=== PATIENT | male | born 1970 | race Caucasian/White ===

== ENCOUNTER 2019-06-01 21:56 | Emergency (ER) | payer BC ==
[~2019-06-01] VITALS: Ht 175.3 cm; Wt 106.6 kg
[2019-06-01 22:37] VITALS: BP_SYST 161
--- NOTE | 2019-06-01 23:03 | NUR ---
Patient triaged and placed in waiting room. VSS and patient appears in no acute distress at this time. Accompanied by self, awaiting available bed, and MD notified of need for MSE.
--- NOTE | 2019-06-02 00:15 | NUR ---
Patient to ER bed 08 to gown for evaluation. Side rails up. Report given to JAMISON Garcia
[2019-06-02 01:29] LABS: BASOPHILS % (AUTO) 1.1 % (0.0-2.0); EOSINOPHILS # (AUTO) 0.3 K/uL (0.0-0.4); EOSINOPHILS % (AUTO) 8.4 % (0.0-4.0); HEMATOCRIT 42.1 % (36-54); HEMOGLOBIN 13.9 g/dL (14.0-18.0); LYMPHOCYTES # (AUTO) 2.2 K/uL (1.0-5.5); LYMPHOCYTES % (AUTO) 55.1 % (20.5-51.5); MEAN CORPUSCULAR HEMOGLOBIN 29 pg (27-31); MEAN CORPUSCULAR HGB CONC 33 % (32-36); MEAN CORPUSCULAR VOLUME 89 fL (79.0-98.0); MONOCYTES # (AUTO) 0.4 K/uL (0.0-1.0); MONOCYTES % (AUTO) 10.2 % (1.7-9.3); NEUTROPHILS % (AUTO) 25.2 % (40.0-70.0); PLATELET COUNT (AUTO) 178 K/uL (130-430); RED BLOOD CELL COUNT(AUTO) 4.76 MIL/uL (4.2-6.2); RED CELL DISTRIBUTION WIDTH 13.6 % (9.0-15.0)
--- NOTE | 2019-06-02 01:35 | NUR ---
Dr. Hatch bedside for pt eval
[2019-06-02 01:37] LABS: CALCIUM 8.4 mg/dL (8.4-11.0); CREATININE 0.93 mg/dL (0.55-1.30); POTASSIUM 3.8 mmol/L (3.5-5.1)
[2019-06-02 01:44] LABS: ALBUMIN 3.9 g/dL (3.4-4.8); TOTAL BILIRUBIN 0.5 mg/dL (0.0-1.0)
--- NOTE | 2019-06-02 01:45 | NUR ---
Pt BIB family to ED C/O constant total body itchiness for 1 week, and a 1 week history of headache, chills, and intermittent, nonradiating chest pressure worse when lying down and relieved upon exertion. Patient also reports abdominal pain and 3 episodes of diarrhea, which have both resolved. Patient endorses taking Azelastine HCl nasal spray and Benadryl with no relief No other complaints and or injuries noted VSS no s/s of acute distress Resting on gurney rails up
[2019-06-02 02:01] LABS: BILIRUBIN,URINE NEGATIVE (NEGATIVE); BLOOD, URINE NEGATIVE (NEGATIVE); CLARITY/URINE CLEAR (CLEAR); COLOR,URINE YELLOW (YELLOW); GLUCOSE,URINE NEGATIVE (NEGATIVE); KETONES,URINE NEGATIVE (NEGATIVE); LEUKOCYTE ESTERASE ,URINE NEGATIVE (NEGATIVE); NITRITE, URINE NEGATIVE (NEGATIVE); PROTEIN URINE NEGATIVE (NEGATIVE); UROBILINOGEN,URINE 0.2 (0.2-1.0)
--- NOTE | 2019-06-02 02:35 | NUR ---
VSS no s/s of acute distress Resting on gurney rails up
--- NOTE | 2019-06-02 03:40 | NUR ---
Dr. Hatch bedside for pt update
[2019-06-02 04:00] VITALS: BP_SYST 148
--- NOTE | 2019-06-02 04:00 | NUR ---
Patient given written and verbal discharge instructions and verbalizes understanding. ER MD discussed with patient the results and treatment provided. Patient in stable condition. ID arm band removed. Rx of Hydroxyzine given. Patient educated on pain management and to follow up with PMD. Pain Scale 0/10 Opportunity for questions provided and answered. Medication side effect fact sheet provided.
== END 2019-06-02 04:00 | disposition home or self-care (01) ==
LOC: SED 21:56
DX: R07.89 Other chest pain (principal); L29.9 Pruritus, unspecified; K21.9 Gastro-esophageal reflux disease without esophagitis; I10 Essential (primary) hypertension
CPT/HCPCS: 36415; 71045; 80053; 81003; 82550-TC; 83880; 84484; 85025; 93005; 99285